=== PATIENT | female | born 1970 | race Caucasian/White ===

== ENCOUNTER → 2021-05-13 | Outpatient (CLI) | payer BC ==
[~2021-05-13] MED LIST: ZOFRAN ODT 4 MG4 MG PO
== END ==
LOC: EXRD 11:01
DX: M79.671 Pain in right foot (principal)
CPT/HCPCS: 73630

== ENCOUNTER 2021-08-17 17:44 | Emergency (ER) | payer BC ==
[2021-08-17] MEDS ORDERED: DELSYM30 MG/5 ML PO (20:12)
== END 2021-08-17 22:00 | disposition home or self-care (01) ==
LOC: ER1 17:44
DX: U07.1 COVID-19 (principal); Z23 Encounter for immunization; I10 Essential (primary) hypertension; Z88.1 Allergy status to other antibiotic agents
CPT/HCPCS: 99283; M0245